=== PATIENT | male | born 2000 | race Two or more races ===

== ENCOUNTER 2024-03-08 22:33 | Emergency (ER) | payer OTHER ==
[~2024-03-08] VITALS: Ht 172.7 cm; Wt 81.8 kg
[2024-03-09 00:17] LABS: Basophils # (auto) 0.1 10 ^3/uL (0-0.2); Basophils % (auto) 0.8 % (0.0-2.0); Eosinophils # (auto) 0.1 10 ^3/uL (0-0.8); Hematocrit 43.5 % (41.0-53.0); Hemoglobin 14.8 g/dL (13.5-17.5); Lymphocytes # (auto) 1.6 10 ^3/uL (0.4-5.4); Mean Corpuscular Hgb Conc. 33.9 g/dL (32.0-36.0); Mean Corpuscular Volume 100.3 fL (80.0-100.0); Monocytes # (auto) 0.7 10 ^3/uL (0-1.3); Monocytes % (auto) 9.6 % (0.0-12.0); Neutrophils # (auto) 4.4 10 ^3/uL (1.6-8.6); Neutrophils % (auto) 64.6 % (37.0-80.0); Nucleated Red Blood Cells % 0.1 %; Red Blood Cells 4.34 10^6/uL (4.5-5.90); Red Cell Distribution Width 13.5 % (11.8-14.3); White Blood Cell 6.8 10^3/uL (4.4-10.8)
[2024-03-09 00:34] LABS: Alanine Aminotransferase 59 U/L (7-40); Albumin 4.5 g/dL (3.2-4.8); Alkaline Phosphatase 111 U/L (46-116); Anion Gap 12 (5-15); Aspartate Aminotransferase 75 U/L (13-40); BUN/Creatinine Ratio 10.6 (10.0-20.0); Bilirubin, Total 0.5 mg/dL (0.2-1.0); Blood Urea Nitrogen 7 mg/dL (9-23); Calcium 9.4 mg/dL (8.7-10.4); Carbon Dioxide 20 mmol/L (20-30); Chloride 108 mmol/L (98-107); Glucose 89 mg/dL (74-106); Potassium 3.4 mmol/L (3.5-5.1); Sodium 140 mmol/L (136-145)
[2024-03-09 02:07] VITALS: BP 111/50; PULSE 100; RESP 14; TEMP 98.2; O2SAT 96
[2024-03-09] MEDS: POTASSIUM CHL 20 Meq TABLET PO ONE (02:12)
[2024-03-09] MEDS: LORazepam 2MG/ML-1ML VIAL IV ONE (02:12)
[2024-03-09] MEDS: SODIUM CHLORIDE 0.9% 1,000 ML IV ONE (02:13)
== END 2024-03-09 03:27 | disposition home or self-care (01) ==
LOC: EDBD 22:33 → ER 22:33
DX: R56.9 Unspecified convulsions (principal)
CPT/HCPCS: 36415; 80053; 85025; 96361; 96374; 99283; J2060; J7030

== ENCOUNTER → 2024-03-09 | Emergency (ER) | payer OTHER ==
[~2024-03-09] VITALS: Ht 172.7 cm; Wt 86.3 kg
[2024-03-09 18:06] VITALS: BP 101/60; PULSE 106; RESP 18; O2SAT 94
== END ==
LOC: EDUNIT# 18:05 → ER 18:05 → EDBD 18:05
DX: F10.10 Alcohol abuse, uncomplicated (principal); Z53.21 Procedure and treatment not carried out due to patient leaving prior to being seen by health care provider; Y90.9 Presence of alcohol in blood, level not specified

== ENCOUNTER 2024-03-11 20:59 | Emergency (ER) | payer OTHER ==
[~2024-03-11] VITALS: Ht 172.7 cm; Wt 90.0 kg
[2024-03-11] MEDS: LORazepam 2MG/ML-1ML VIAL IM ONE (21:52)
[2024-03-11] MEDS: levETIRAcetam 1000 mg/100ml 100 ML IV ONE (22:22)
[2024-03-11 22:27] LABS: Urine Bacteria None Seen /hpf (None Seen)
[2024-03-11 22:35] LABS: Basophils # (auto) 0 10 ^3/uL (0-0.2); Basophils % (auto) 0.9 % (0.0-2.0); Eosinophils # (auto) 0 10 ^3/uL (0-0.8); Eosinophils % (auto) 0.9 % (0.0-7.0); Hematocrit 40.5 % (41.0-53.0); Hemoglobin 14.1 g/dL (13.5-17.5); Lymphocytes # (auto) 1.5 10 ^3/uL (0.4-5.4); Lymphocytes % (auto) 32.6 % (10.0-50.0); Mean Corpuscular Hemoglobin 34.6 pg (28.0-32.0); Mean Corpuscular Hgb Conc. 34.7 g/dL (32.0-36.0); Mean Corpuscular Volume 99.8 fL (80.0-100.0); Monocytes # (auto) 0.6 10 ^3/uL (0-1.3); Monocytes % (auto) 12.9 % (0.0-12.0); Neutrophils # (auto) 2.5 10 ^3/uL (1.6-8.6); Neutrophils % (auto) 52.7 % (37.0-80.0); Red Blood Cells 4.06 10^6/uL (4.5-5.90); Red Cell Distribution Width 13.4 % (11.8-14.3); White Blood Cell 4.7 10^3/uL (4.4-10.8)
[2024-03-11] MEDS: KETOROLAC TROMETH 30 MG/ML 1ML VIAL IV ONE (22:39)
[2024-03-11] MEDS: SODIUM CHLORIDE 0.9% 1,000 ML IV ONE (22:40)
[2024-03-11 22:52] LABS: Alanine Aminotransferase 49 U/L (7-40); Alkaline Phosphatase 91 U/L (46-116); Aspartate Aminotransferase 48 U/L (13-40); Calcium 9.2 mg/dL (8.7-10.4); Carbon Dioxide 24 mmol/L (20-30); Chloride 107 mmol/L (98-107)
[2024-03-11 22:52] LABS: Urine Blood Negative /uL (Negative); Urine Clarity Clear (Clear); Urine Color Light-Yellow (Yellow); Urine Mucus FEW (None Seen); Urine Protein, UAD Negative (Negative); Urine Specific Gravity 1.015 (1.001-1.035); Urine Urobilinogen Normal (Negative); Urine WBC <1 /hpf (0 - 3)
[2024-03-11 22:53] LABS: Albumin 4.2 g/dL (3.2-4.8); Anion Gap 12 (5-15); BUN/Creatinine Ratio 9.7 (10.0-20.0); Bilirubin, Total 0.4 mg/dL (0.2-1.0); Blood Urea Nitrogen 6 mg/dL (9-23); Glucose 88 mg/dL (74-106); Lipase 32 U/L (12-53); Potassium 3.5 mmol/L (3.5-5.1); Sodium 143 mmol/L (136-145); Total Protein 7.3 g/dL (5.7-8.2)
[2024-03-11 23:02] LABS: Amphetamine Screen, Urine Neg (NEGATIVE); Barbiturate Scree,Urine Neg (NEGATIVE); Benzodiazephine Screen, Urine Neg (NEGATIVE); Cannabinoid Screen, Urine Neg (NEGATIVE); Cocaine Screen, Urine Neg (NEGATIVE); Opiate Scree,Urine Neg (NEGATIVE); Phencyclidine Screen, Urine Neg (NEGATIVE)
[2024-03-12 00:10] VITALS: PULSE 70; RESP 13; O2SAT 98
[2024-03-12] MEDS: SODIUM CHLORIDE 0.9% 1,000 ML IV ONE (01:08)
[2024-03-12 04:48] VITALS: BP 121/88; PULSE 88; RESP 18; TEMP 98.7; O2SAT 97
== END 2024-03-12 04:58 | disposition home or self-care (01) ==
LOC: EDBD 20:59 → ER 20:59
DX: R56.9 Unspecified convulsions (principal)
CPT/HCPCS: 36415; 74176; 80053; 80307; 80320; 81001; 83690; 85025; 93005; 96361; 96365; 96372; 96375; 99285; J1885; J1953; J2060; J7030

== ENCOUNTER 2024-03-12 22:30 | Emergency (ER) | payer OTHER ==
[~2024-03-12] VITALS: Ht 172.7 cm; Wt 90.0 kg
[2024-03-12 23:41] LABS: Basophils # (auto) 0.1 10 ^3/uL (0-0.2); Basophils % (auto) 1.4 % (0.0-2.0); Eosinophils # (auto) 0 10 ^3/uL (0-0.8); Hemoglobin 14.2 g/dL (13.5-17.5); Lymphocytes # (auto) 1.6 10 ^3/uL (0.4-5.4); Mean Corpuscular Hemoglobin 34.3 pg (28.0-32.0); Monocytes # (auto) 0.4 10 ^3/uL (0-1.3); Red Cell Distribution Width 13.4 % (11.8-14.3); White Blood Cell 4.1 10^3/uL (4.4-10.8)
[2024-03-12 23:43] LABS: Hematocrit 41.3 % (41.0-53.0); Lymphocytes % (auto) 38.7 % (10.0-50.0); Mean Corpuscular Hgb Conc. 34.4 g/dL (32.0-36.0); Mean Corpuscular Volume 99.7 fL (80.0-100.0); Monocytes % (auto) 10.8 % (0.0-12.0); Neutrophils % (auto) 48.1 % (37.0-80.0); Nucleated Red Blood Cells % 0.1 %; Red Blood Cells 4.15 10^6/uL (4.5-5.90)
[2024-03-12 23:59] LABS: Alanine Aminotransferase 48 U/L (7-40); Albumin 3.9 g/dL (3.2-4.8); Alkaline Phosphatase 112 U/L (46-116); Anion Gap 11 (5-15); Aspartate Aminotransferase 45 U/L (13-40); Bilirubin, Total 0.3 mg/dL (0.2-1.0); Calcium 8.9 mg/dL (8.7-10.4); Carbon Dioxide 27 mmol/L (20-30); Chloride 109 mmol/L (98-107); Glucose 103 mg/dL (74-106); Potassium 3.1 mmol/L (3.5-5.1); Sodium 147 mmol/L (136-145); Total Protein 6.8 g/dL (5.7-8.2)
[2024-03-13] LABS: BUN/Creatinine Ratio 8.5 (10.0-20.0); Blood Urea Nitrogen < 5 mg/dL (9-23)
[2024-03-13 00:32] LABS: Blood Alcohol 355.5 mg/dL (<10)
[2024-03-13] MEDS: POTASSIUM CHL 20 Meq TABLET PO ONE (01:19)
[2024-03-13 10:07] VITALS: BP 124/79; PULSE 96; RESP 18; TEMP 98.3; O2SAT 97
== END 2024-03-13 10:16 | disposition home or self-care (01) ==
LOC: EDBD 22:30 → ER 22:30
DX: F10.129 Alcohol abuse with intoxication, unspecified (principal); R44.1 Visual hallucinations; Z59.00 Homelessness unspecified; Y90.8 Blood alcohol level of 240 mg/100 ml or more
CPT/HCPCS: 36415; 80053; 80320; 85025

== ENCOUNTER 2024-03-15 00:13 | Emergency (ER) | payer OTHER ==
[~2024-03-15] VITALS: Ht 172.7 cm; Wt 77.3 kg
[2024-03-15 01:31] LABS: Basophils # (auto) 0.1 10 ^3/uL (0-0.2); Eosinophils # (auto) 0 10 ^3/uL (0-0.8); Eosinophils % (auto) 0.7 % (0.0-7.0); Hemoglobin 13.8 g/dL (13.5-17.5); Lymphocytes # (auto) 2.1 10 ^3/uL (0.4-5.4); Mean Corpuscular Hemoglobin 34.3 pg (28.0-32.0); Mean Corpuscular Hgb Conc. 34.3 g/dL (32.0-36.0); Mean Corpuscular Volume 99.9 fL (80.0-100.0); Monocytes # (auto) 0.5 10 ^3/uL (0-1.3); Neutrophils # (auto) 1.8 10 ^3/uL (1.6-8.6); White Blood Cell 4.5 10^3/uL (4.4-10.8)
[2024-03-15 01:33] LABS: Basophils % (auto) 2.5 % (0.0-2.0); Hematocrit 40.3 % (41.0-53.0); Lymphocytes % (auto) 46.4 % (10.0-50.0); Monocytes % (auto) 11.2 % (0.0-12.0); Neutrophils % (auto) 39.2 % (37.0-80.0); Nucleated Red Blood Cells % 0.1 %; Red Blood Cells 4.03 10^6/uL (4.5-5.90); Red Cell Distribution Width 13.3 % (11.8-14.3)
[2024-03-15 02:00] LABS: Acetaminophen < 2.0 UG/ML (10.0-20.0)
[2024-03-15 02:15] LABS: Alanine Aminotransferase 42 U/L (7-40); Albumin 3.9 g/dL (3.2-4.8); Alkaline Phosphatase 105 U/L (46-116); Anion Gap 8 (5-15); Aspartate Aminotransferase 34 U/L (13-40); Bilirubin, Total 0.4 mg/dL (0.2-1.0); Calcium 8.6 mg/dL (8.5-10.1); Carbon Dioxide 26 mmol/L (20-30); Chloride 109 mmol/L (98-107); Glucose 96 mg/dL (74-106); Potassium 3.4 mmol/L (3.5-5.1); Sodium 143 mmol/L (136-145); Total Protein 6.6 g/dL (5.7-8.2)
[2024-03-15 02:15] LABS: Urine Bacteria None Seen /hpf (None Seen); Urine WBC None Seen /hpf (0 - 3)
[2024-03-15 02:19] LABS: BUN/Creatinine Ratio 7.7 (10.0-20.0); Blood Urea Nitrogen < 5 mg/dL (9-23)
[2024-03-15 02:20] LABS: Salicylate < 3.0 mg/dL (2.8-20.0)
[2024-03-15 02:22] LABS: Blood Alcohol 352.8 mg/dL (<10)
[2024-03-15 02:29] LABS: Urine Blood Negative /uL (Negative); Urine Clarity Clear (Clear); Urine Color Colorless (Yellow); Urine Protein, UAD Negative (Negative); Urine Specific Gravity 1.004 (1.001-1.035); Urine Urobilinogen Normal (Negative); Urine pH 5.5 (5.0-9.0)
[2024-03-15] MEDS: SODIUM CHLORIDE 0.9% 1,000 ML IV ONE (02:34)
[2024-03-15] MEDS: LORazepam 2MG/ML-1ML VIAL IV ONE (02:41)
[2024-03-15 02:43] LABS: Amphetamine Screen, Urine Neg (NEGATIVE); Benzodiazephine Screen, Urine Neg (NEGATIVE)
[2024-03-15 02:44] LABS: Barbiturate Scree,Urine Neg (NEGATIVE); Cannabinoid Screen, Urine Neg (NEGATIVE); Cocaine Screen, Urine Neg (NEGATIVE); Opiate Scree,Urine Neg (NEGATIVE); Phencyclidine Screen, Urine Neg (NEGATIVE)
[2024-03-15 04:11] VITALS: PULSE 72; O2SAT 98
[2024-03-15 07:01] VITALS: PULSE 72; O2SAT 98
[2024-03-15 08:20] LABS: Magnesium 1.9 mg/dL (1.6-2.6)
[2024-03-15 09:00] VITALS: PULSE 84; RESP 14; O2SAT 96
[2024-03-15] MEDS: SODIUM CHLORIDE 0.9% 1,000 ML IVB ONE (09:03)
[2024-03-15] MEDS: FOLIC ACID 1 MG, MAGNESIUM SULF SDV 50% 8 MEQ, MULTIPLE VITAMIN 10 ML, THIAMINE INJ 100... INJ SCH (12:11)
[2024-03-15 16:22] VITALS: BP 120/83; PULSE 100; RESP 18; TEMP 97.3; O2SAT 96
== END 2024-03-15 16:25 | disposition home or self-care (01) ==
LOC: EDBD 00:13 → ER 00:13
DX: F10.129 Alcohol abuse with intoxication, unspecified (principal); Z59.00 Homelessness unspecified; Z79.899 Other long term (current) drug therapy; Y90.8 Blood alcohol level of 240 mg/100 ml or more
CPT/HCPCS: 36415; 80053; 80307; 80320; 80329; 81001; 83690; 83735; 84484; 85025; 96361; 96365; 96366; 96375; 99285; J2060; J3411; J3475; J7030

== ENCOUNTER 2024-03-16 02:59 | Emergency (ER) | payer OTHER ==
[~2024-03-16] VITALS: Ht 172.7 cm; Wt 86.4 kg
[2024-03-16] MEDS ORDERED: SODIUM CHLORIDE 0.9% 1,000 ML IV ONE (05:45)
== END 2024-03-16 07:09 | disposition left against medical advice (07) ==
LOC: EDUNIT# 02:59 → EDBD 02:59 → ER 02:59
DX: F10.90 Alcohol use, unspecified, uncomplicated (principal); Z53.21 Procedure and treatment not carried out due to patient leaving prior to being seen by health care provider; Z79.899 Other long term (current) drug therapy
CPT/HCPCS: 93005

== ENCOUNTER 2024-03-16 19:57 | Emergency (ER) | payer OTHER ==
[2024-03-16] MEDS: levETIRAcetam 500 MG TAB PO ONE (21:03)
[2024-03-16] MEDS: levETIRAcetam 1000 mg/100ml 100 ML IV ONE (21:08)
[2024-03-16] MEDS: FOLIC ACID 1 MG, MAGNESIUM SULF SDV 50% 8 MEQ, MULTIPLE VITAMIN 10 ML, THIAMINE INJ 100... INJ SCH (21:09)
[2024-03-16] MEDS: ONDANSETRON HCL 4 MG/2 ML VIAL IV ONE (21:09)
[2024-03-16 21:18] LABS: Basophils # (auto) 0.1 10 ^3/uL (0-0.2); Basophils % (auto) 1.5 % (0.0-2.0); Eosinophils # (auto) 0 10 ^3/uL (0-0.8); Eosinophils % (auto) 0.4 % (0.0-7.0); Hematocrit 42.9 % (41.0-53.0); Hemoglobin 14.6 g/dL (13.5-17.5); Lymphocytes # (auto) 1.7 10 ^3/uL (0.4-5.4); Lymphocytes % (auto) 46.2 % (10.0-50.0); Mean Corpuscular Hgb Conc. 34.1 g/dL (32.0-36.0); Mean Corpuscular Volume 99.8 fL (80.0-100.0); Monocytes # (auto) 0.4 10 ^3/uL (0-1.3); Monocytes % (auto) 9.6 % (0.0-12.0); Neutrophils # (auto) 1.6 10 ^3/uL (1.6-8.6); Neutrophils % (auto) 42.3 % (37.0-80.0); Nucleated Red Blood Cells % 0.2 %; Red Blood Cells 4.29 10^6/uL (4.5-5.90); Red Cell Distribution Width 13.6 % (11.8-14.3); White Blood Cell 3.7 10^3/uL (4.4-10.8)
[2024-03-16] MEDS: THIAMINE 100mg/ml INJ (200mg/2ml VIAL) IV ONE (21:32)
[2024-03-16 21:41] LABS: Alanine Aminotransferase 39 U/L (7-40); Albumin 4.2 g/dL (3.2-4.8); Alkaline Phosphatase 121 U/L (46-116); Anion Gap 10 (5-15); Aspartate Aminotransferase 33 U/L (13-40); BUN/Creatinine Ratio 9.7 (10.0-20.0); Bilirubin, Total 0.3 mg/dL (0.2-1.0); Blood Urea Nitrogen 7 mg/dL (9-23); Calcium 9.1 mg/dL (8.5-10.1); Carbon Dioxide 29 mmol/L (20-30); Chloride 107 mmol/L (98-107); Glucose 101 mg/dL (74-106); Potassium 3.3 mmol/L (3.5-5.1); Sodium 146 mmol/L (136-145); Total Protein 6.9 g/dL (5.7-8.2)
[2024-03-16 21:50] LABS: Blood Alcohol 403.3 mg/dL (<10)
[2024-03-17 07:47] VITALS: BP 110/66; TEMP 97.8
[2024-03-17 07:53] VITALS: PULSE 87; RESP 16; O2SAT 97
[2024-03-17 09:18] LABS: Urine Bacteria None Seen /hpf (None Seen)
[2024-03-17 09:39] LABS: Urine Blood Negative /uL (Negative); Urine Clarity Clear (Clear); Urine Color Yellow (Yellow); Urine Hyaline Cast FEW /lpf (0 - 2); Urine Mucus FEW (None Seen); Urine Protein, UAD TRACE (Negative); Urine Specific Gravity 1.024 (1.001-1.035); Urine Urobilinogen Normal (Negative); Urine WBC 1 /hpf (0 - 3)
[2024-03-17 09:48] LABS: Barbiturate Scree,Urine Neg (NEGATIVE)
[2024-03-17 09:49] LABS: Benzodiazephine Screen, Urine Neg (NEGATIVE); Cannabinoid Screen, Urine Neg (NEGATIVE); Cocaine Screen, Urine Neg (NEGATIVE); Opiate Scree,Urine Neg (NEGATIVE); Phencyclidine Screen, Urine Neg (NEGATIVE)
[2024-03-17 09:50] LABS: Amphetamine Screen, Urine Neg (NEGATIVE)
[2024-03-18] MEDS ORDERED: LEVE500T40 PO (16:22)
== END 2024-03-17 10:17 | disposition home or self-care (01) ==
LOC: EDBD 19:57 → ER 19:57
DX: F10.129 Alcohol abuse with intoxication, unspecified (principal); Z79.899 Other long term (current) drug therapy; Y90.0 Blood alcohol level of less than 20 mg/100 ml
CPT/HCPCS: 36415; 80053; 80307; 80320; 81001; 85025; 96365; 96366; 96368; 96375; 96376; 99284; J1953; J2405; J3411; J3475; J7030

== ENCOUNTER 2024-03-18 06:19 | Inpatient (IN) | payer OTHER ==
[~2024-03-18] VITALS: Ht 170.2 cm; Wt 95.7 kg
[2024-03-18] MEDS: SODIUM CHLORIDE 0.9% 1,000 ML IV ONE ×3 (07:30→12:49)
[2024-03-18] MEDS: THIAMINE 100mg/ml INJ (200mg/2ml VIAL) IV ONE (07:30)
[2024-03-18 07:44] VITALS: PULSE 74; RESP 19; O2SAT 95
[2024-03-18 11:15] LABS: Amphetamine Screen, Urine Neg (NEGATIVE); Barbiturate Scree,Urine Neg (NEGATIVE); Benzodiazephine Screen, Urine Neg (NEGATIVE); Cocaine Screen, Urine Neg (NEGATIVE); Opiate Scree,Urine Neg (NEGATIVE)
[2024-03-18 11:16] LABS: Cannabinoid Screen, Urine Neg (NEGATIVE); Phencyclidine Screen, Urine Neg (NEGATIVE)
[2024-03-18] MEDS: chlordiazePOXIDE HCL 25 MG CAP PO ONE (12:49)
[2024-03-18] MEDS ORDERED: TEMAZEPAM 15 MG CAP PO PRN (13:15)
[2024-03-18] MEDS ORDERED: LORazepam 2MG/ML-1ML VIAL IV PRN (13:15)
[2024-03-18] MEDS ORDERED: ACETAMINOPHEN 325 MG TAB PO PRN (13:15)
[2024-03-18 13:20] VITALS: PULSE 79; RESP 14; O2SAT 97
[2024-03-18] MEDS: LORazepam 2MG/ML-1ML VIAL IV ONE (13:25)
[2024-03-18] MEDS ORDERED: LEVE500T40 PO (16:22)
[2024-03-18 16:25] VITALS: O2SAT 97
[2024-03-18 16:53] VITALS: BP 119/89; PULSE 69; RESP 18; TEMP 97.8; O2SAT 97
[2024-03-18] MEDS: FOLIC ACID 1 MG, MULTIPLE VITAMIN 10 ML, MAGNESIUM SULF SDV 50% 8 MEQ, THIAMINE INJ 100... INJ SCH (17:04)
[2024-03-18 17:54] LABS: Chloride 108 mmol/L (98-107); Potassium 3.7 mmol/L (3.5-5.1); Sodium 142 mmol/L (136-145)
[2024-03-18 17:55] LABS: Anion Gap 9 (5-15); Calcium 8.8 mg/dL (8.7-10.4); Carbon Dioxide 25 mmol/L (20-30)
[2024-03-18 18:00] LABS: BUN/Creatinine Ratio 11.8 (10.0-20.0); Blood Urea Nitrogen 6 mg/dL (9-23); Glucose 75 mg/dL (74-106)
[2024-03-18 21:00] VITALS: BP 124/62; PULSE 65; RESP 18; TEMP 97.9; O2SAT 97
[2024-03-18] MEDS: levETIRAcetam 500 MG TAB PO ONE (23:41)
[2024-03-19 06:08] LABS: Chloride 103 mmol/L (98-107); Potassium 3.4 mmol/L (3.5-5.1); Sodium 137 mmol/L (136-145)
[2024-03-19 06:09] LABS: Anion Gap 6 (5-15); Calcium 9.3 mg/dL (8.5-10.1); Carbon Dioxide 28 mmol/L (20-30)
[2024-03-19 06:14] LABS: BUN/Creatinine Ratio 9.3 (10.0-20.0); Blood Urea Nitrogen < 5 mg/dL (9-23); Glucose 101 mg/dL (74-106)
[2024-03-19] MEDS: levETIRAcetam 500 MG TAB PO SCH (08:55)
[2024-03-19] MEDS: chlordiazePOXIDE HCL 25 MG CAP PO PRN (08:56)
[2024-03-19 09:00] VITALS: BP 133/93; PULSE 79; RESP 16; TEMP 97.9; O2SAT 98
[2024-03-19] MEDS: ONDANSETRON HCL 4 MG/2 ML VIAL IV PRN (09:10)
[2024-03-19 13:30] VITALS: BP 130/89; PULSE 78; RESP 16; TEMP 98.2; O2SAT 97
[2024-03-19 17:30] VITALS: BP 132/92; PULSE 88; RESP 17; TEMP 98.2; O2SAT 95
== END 2024-03-19 21:50 | disposition left against medical advice (07) | DRG 53 ==
LOC: EDBD 06:19 → EDUNIT# 06:19 → ER 06:19 → OVERFLOW 13:16 → CENTRAL 15:18
PROVIDERS: ADMIT Nurse Practitioner; ATTEND Nurse Practitioner
DX: R56.9 Unspecified convulsions (principal); E66.9 Obesity, unspecified; E87.6 Hypokalemia; F10.129 Alcohol abuse with intoxication, unspecified; Y90.9 Presence of alcohol in blood, level not specified; Z59.00 Homelessness unspecified; Z68.33 Body mass index [BMI] 33.0-33.9, adult; F10.139 Alcohol abuse with withdrawal, unspecified; Y90.8 Blood alcohol level of 240 mg/100 ml or more
CPT/HCPCS: 36415; 80048; 80307; 80320; 96361; 96374; 96375; G0378; J2405

== ENCOUNTER 2024-04-05 00:30 | Emergency (ER) | payer OTHER ==
[~2024-04-05] VITALS: Ht 172.7 cm; Wt 81.8 kg
[~2024-04-05 00:30] MED LIST: LEVE500T40 PO
[2024-04-05 00:54] LABS: Eosinophils # (auto) 0.1 10 ^3/uL (0-0.8); Hemoglobin 14.4 g/dL (13.5-17.5); Monocytes # (auto) 0.5 10 ^3/uL (0-1.3); Red Cell Distribution Width 12.8 % (11.8-14.3); White Blood Cell 5.2 10^3/uL (4.4-10.8)
[2024-04-05 00:55] LABS: Basophils # (auto) 0.2 10 ^3/uL (0-0.2); Basophils % (auto) 3.7 % (0.0-2.0); Eosinophils % (auto) 1.1 % (0.0-7.0); Hematocrit 40.9 % (41.0-53.0); Lymphocytes # (auto) 2.7 10 ^3/uL (0.4-5.4); Mean Corpuscular Hemoglobin 34.5 pg (28.0-32.0); Mean Corpuscular Hgb Conc. 35.1 g/dL (32.0-36.0); Mean Corpuscular Volume 98.3 fL (80.0-100.0); Monocytes % (auto) 9.5 % (0.0-12.0); Neutrophils # (auto) 1.8 10 ^3/uL (1.6-8.6); Neutrophils % (auto) 34.7 % (37.0-80.0); Red Blood Cells 4.16 10^6/uL (4.5-5.90)
[2024-04-05] MEDS: levETIRAcetam 1000 mg/100ml 100 ML IV ONE (00:59)
[2024-04-05] MEDS: SODIUM CHLORIDE 0.9% 1,000 ML IV ONE (01:00)
[2024-04-05 01:03] VITALS: PULSE 97; RESP 15; O2SAT 97
[2024-04-05 01:08] LABS: Alanine Aminotransferase 39 U/L (7-40); Albumin 4.1 g/dL (3.2-4.8); Alkaline Phosphatase 96 U/L (46-116); Anion Gap 8 (5-15); Aspartate Aminotransferase 38 U/L (13-40); Calcium 8.9 mg/dL (8.7-10.4); Carbon Dioxide 27 mmol/L (20-30); Chloride 105 mmol/L (98-107); Glucose 128 mg/dL (74-106); Sodium 140 mmol/L (136-145)
[2024-04-05 01:09] LABS: Bilirubin, Total 0.5 mg/dL (0.2-1.0)
[2024-04-05 01:19] LABS: BUN/Creatinine Ratio 7.9 (10.0-20.0); Blood Urea Nitrogen < 5 mg/dL (9-23)
[2024-04-05] MEDS: FOLIC ACID 1 MG, MAGNESIUM SULF SDV 50% 8 MEQ, MULTIPLE VITAMIN 10 ML, THIAMINE INJ 100... INJ ONE (01:23)
[2024-04-05 07:30] VITALS: PULSE 70; RESP 17; O2SAT 100
[2024-04-05 08:00] VITALS: TEMP 98
[2024-04-05 09:00] VITALS: BP 107/64; PULSE 72; RESP 14; O2SAT 98
== END 2024-04-05 09:19 | disposition home or self-care (01) ==
LOC: EDBD 00:30 → ER 00:30
DX: R56.9 Unspecified convulsions (principal); Z59.00 Homelessness unspecified
CPT/HCPCS: 36415; 80053; 80320; 85025; 96365; 96366; 99285; J1953; J3411; J3475; J7030

== ENCOUNTER 2024-04-11 19:20 | Emergency (ER) | payer OTHER ==
[~2024-04-11] VITALS: Ht 177.8 cm; Wt 81.8 kg
[2024-04-11 20:13] LABS: Basophils # (auto) 0.1 10 ^3/uL (0-0.2); Eosinophils # (auto) 0.1 10 ^3/uL (0-0.8); Monocytes # (auto) 0.3 10 ^3/uL (0-1.3); Neutrophils # (auto) 3.5 10 ^3/uL (1.6-8.6); White Blood Cell 5.3 10^3/uL (4.4-10.8)
[2024-04-11 20:16] LABS: Basophils % (auto) 1.1 % (0.0-2.0); Hemoglobin 14.9 g/dL (13.5-17.5); Lymphocytes # (auto) 1.4 10 ^3/uL (0.4-5.4); Lymphocytes % (auto) 27.1 % (10.0-50.0); Mean Corpuscular Hemoglobin 34.7 pg (28.0-32.0); Mean Corpuscular Hgb Conc. 35.4 g/dL (32.0-36.0); Neutrophils % (auto) 65.8 % (37.0-80.0); Nucleated Red Blood Cells % 0.3 %; Red Blood Cells 4.28 10^6/uL (4.5-5.90); Red Cell Distribution Width 12.6 % (11.8-14.3)
[2024-04-11 20:43] LABS: Alanine Aminotransferase 57 U/L (7-40); Albumin 4.4 g/dL (3.2-4.8); Alkaline Phosphatase 109 U/L (46-116); Anion Gap 9 (5-15); Aspartate Aminotransferase 74 U/L (13-40); Calcium 9.1 mg/dL (8.5-10.1); Carbon Dioxide 25 mmol/L (20-30); Chloride 110 mmol/L (98-107); Glucose 84 mg/dL (74-106); Potassium 3.7 mmol/L (3.5-5.1); Sodium 144 mmol/L (136-145)
[2024-04-11 20:44] LABS: Bilirubin, Total 0.6 mg/dL (0.2-1.0)
[2024-04-11 20:49] LABS: Total Protein 7.4 g/dL (5.7-8.2)
[2024-04-11 20:51] LABS: Blood Alcohol 374.8 mg/dL (<10)
[2024-04-11 20:58] LABS: BUN/Creatinine Ratio 12.9 (10.0-20.0); Blood Urea Nitrogen 9 mg/dL (9-23)
[2024-04-11 21:01] LABS: Lactic Acid w/Reflex 2.5 mmol/L (0.4-2.0)
[2024-04-11] MEDS: SODIUM CHLORIDE 0.9% 1,000 ML IVB ONE (21:10)
[2024-04-12 05:45] VITALS: BP 128/83; PULSE 87; RESP 16; TEMP 98.4; O2SAT 96
== END 2024-04-12 06:07 | disposition home or self-care (01) ==
LOC: EDSEX 19:20 → EDUNIT# 19:20 → ER 19:20 → EDBD 19:20 → ER 04-12 06:07
DX: F10.129 Alcohol abuse with intoxication, unspecified (principal); G40.909 Epilepsy, unspecified, not intractable, without status epilepticus; Z59.00 Homelessness unspecified; Z79.899 Other long term (current) drug therapy; Y90.0 Blood alcohol level of less than 20 mg/100 ml
CPT/HCPCS: 36415; 80053; 80320; 83605; 84484; 85025; 96360; 96361; 99283; J7030

== ENCOUNTER 2024-05-18 01:41 | Emergency (ER) | payer MEDICAID, OTHER ==
[~2024-05-18] VITALS: Ht 167.6 cm; Wt 72.6 kg
[2024-05-18 02:33] LABS: Alanine Aminotransferase 20 U/L (7-40); Alkaline Phosphatase 92 U/L (46-116); Anion Gap 8 (5-15); Aspartate Aminotransferase 25 U/L (13-40); BUN/Creatinine Ratio 10.6 (10.0-20.0); Bilirubin, Total 0.8 mg/dL (0.2-1.0); Blood Urea Nitrogen 7 mg/dL (9-23); Calcium 8.7 mg/dL (8.7-10.4); Carbon Dioxide 29 mmol/L (20-30); Chloride 108 mmol/L (98-107); Glucose 124 mg/dL (74-106); Potassium 2.9 mmol/L (3.5-5.1); Sodium 145 mmol/L (136-145); Total Protein 6.9 g/dL (5.7-8.2)
[2024-05-18] MEDS: levETIRAcetam 500 mg/100ml 100 ML IV ONE (03:05)
[2024-05-18] MEDS: SODIUM CHLORIDE 0.9% 1,000 ML IV ONE (03:06)
[2024-05-18] MEDS: SODIUM CHLORIDE 0.9% 2,000 ML IV ONE (03:06)
[2024-05-18] MEDS: POTASSIUM CHL 20 Meq TABLET PO ONE (08:03)
[2024-05-18 08:21] VITALS: BP 115/76; TEMP 97.9
[2024-05-18 08:22] VITALS: PULSE 78; RESP 15; O2SAT 99
[2024-05-21] MEDS ORDERED: KEP500T PO (03:25)
== END 2024-05-18 08:30 | disposition home or self-care (01) ==
LOC: ER 01:41 → EDUNIT# 01:41 → EDBD 01:41 → ER 08:30
DX: F10.129 Alcohol abuse with intoxication, unspecified (principal); R56.9 Unspecified convulsions; R40.4 Transient alteration of awareness; E87.6 Hypokalemia; Z91.199 Patient's noncompliance with other medical treatment and regimen due to unspecified reason; Z79.899 Other long term (current) drug therapy; Y90.0 Blood alcohol level of less than 20 mg/100 ml
CPT/HCPCS: 36415; 80053; 80320; 96365; 99284; J1953